=== PATIENT | male | born 1935 | race Caucasian/White ===

== ENCOUNTER 2017-01-27 18:00 | Outpatient (CLI) | payer MEDICARE ==
[2017-01-27 20:26] LABS: ALT (SGPT) 23 U/L (8-55); AST (SGOT) 37 U/L (5-34); Albumin 3.7 g/dL (3.4-4.8); Alkaline Phosphatase 116 U/L (40-150); Bilirubin, Direct 0.5 mg/dL (0.1-0.3); Bilirubin, Total 0.8 mg/dL (0.2-1.2); Protein, Total 6.9 g/dL (5.8-8.1)
== END 2017-01-27 18:01 | disposition home or self-care (01) ==
LOC: NAV LABSP 18:00
PROVIDERS: ATTEND Internal Medicine
DX: R94.5 Abnormal results of liver function studies (principal)
CPT/HCPCS: 80076